=== PATIENT | female | born 1950 | race African-American/Black ===

== ENCOUNTER 2020-08-15 07:45 | Inpatient (IN) | payer OTHER ==
[2020-08-15] VITALS (22 sets, daily range): BP systolic 98–145; BP diastolic 35–77
[~2020-08-15] VITALS: Ht 172.7 cm; Wt 68.0 kg
[2020-08-15] MEDS ORDERED: ONDANSETRON HCL 4MG/2ML INJ IV STA (08:29)
[2020-08-15] MEDS ORDERED: SODIUM CHLORIDE 0.9% 500 ML IV ONE (08:30)
[2020-08-15 08:43] LABS: BASOPHILS % 0.4 % (0.0-2.0); EOSINOPHILS % 0.1 % (0.0-5.0); HEMATOCRIT. 47.9 % (36.0-48.0); HEMOGLOBIN. 16.1 g/dL (12.0-16.0); LYMPHOCYTES % 18.7 % (20.0-50.0); MEAN CORPUSCULAR HEMOGLOBIN 29.7 pg (28.0-32.0); MEAN CORPUSCULAR VOLUME 88.4 fL (81.0-99.0); MEAN PLATELET VOLUME 8.3 fl (7.4-10.4); MONOCYTES % 9.9 % (2.0-8.0); NEUTROPHILS % 70.9 % (40.0-76.0); PLATELET 217 x1000/uL (130-400); RED BLOOD CELL COUNT 5.42 mill/uL (4.2-5.4); RED CELL DISTRIBUTION WIDTH 14.1 % (11.6-14.6)
[2020-08-15 08:50] LABS: CHLORIDE 103 mEq/L (98-107)
[2020-08-15 08:57] LABS: ETHANOL BLOOD < 10 mg/dL
[2020-08-15] MEDS ORDERED: POTASSIUM CHLORIDE 20MEQ TABLET SR PO ONE (09:00)
[2020-08-15] MEDS ORDERED: LEVETIRACETAM 500MG PREMIX 100 ML IV ONE ×2 (09:45→12:12)
[2020-08-15] MEDS ORDERED: MANNITOL 12.5G (25%) VIAL 50ML IV ONE (09:45)
[2020-08-15] MEDS ORDERED: MANNITOL 20% 250 ML IV NR (10:30)
[2020-08-15 10:32] LABS: PARTIAL THROMBOPLASTIN TIME 25.1 sec (23.4-31.0); PROTHROMBIN TIME 10.9 sec (9.6-11.0)
[2020-08-15] MEDS ORDERED: BACITRACIN 50,000 UNITS/VIAL ONE (10:48)
[2020-08-15] MEDS ORDERED: BACITRACIN 15GM TUBE TOP ONE (10:48)
[2020-08-15] MEDS ORDERED: THROMBIN (BOVINE) 5000 UNITS/VIAL TOP ONE (10:48)
[2020-08-15] MEDS ORDERED: FENTANYL CITRATE/PF 50MCG/ML 2ML VIAL ONE (11:25)
[2020-08-15] MEDS ORDERED: MIDAZOLAM HCL 2 MG/2 ML VIAL ONE (11:25)
[2020-08-15] MEDS ORDERED: ONDANSETRON HCL 4MG/2ML INJ ONE (12:01)
[2020-08-15] MEDS ORDERED: DEXAMETHASONE 4MG/ML 1ML VIAL ONE (12:01)
[2020-08-15] MEDS ORDERED: NEOSTIGMINE METHYLSULFATE 1MG/ML 10 ML VIAL ONE (12:01)
[2020-08-15] MEDS ORDERED: PROPOFOL 200MG/20ML VIAL IV ONE (12:01)
[2020-08-15] MEDS ORDERED: ROCURONIUM BROMIDE 10MG/ML VIAL 5ML IV ONE (12:01)
[2020-08-15] MEDS ORDERED: FENTANYL CITRATE/PF 50MCG/ML 5ML VIAL ONE (12:02)
[2020-08-15] MEDS ORDERED: LEVETIRACETAM 500 MG in SODIUM CHLORIDE 0.9% 100 ML IV SCH (12:15)
[2020-08-15] MEDS ORDERED: HYDROMORPHONE HCL/PF 2MG/ML CPJ IV PRN (12:30)
[2020-08-15] MEDS ORDERED: MEPERIDINE HCL/PF 25MG/ML CPJ IV PRN (12:30)
[2020-08-15] MEDS ORDERED: LABETALOL 5MG/ML SYR 20 MG/4 ML SYRINGE IV PRN (12:30)
[2020-08-15] MEDS ORDERED: ONDANSETRON HCL 4MG/2ML INJ IV PRN (12:30)
[2020-08-15] MEDS ORDERED: CEFAZOLIN SODIUM 1000MG/VIAL IV SCH (14:00)
[2020-08-15] MEDS: MORPHINE SULFATE 4 MG/ML CPJ (NOT FOR IM USE) IV PRN ×2 (17:11→19:13)
[2020-08-15] MEDS: NICARDIPINE 100 MG in SODIUM CHLORIDE 0.9% 60 ML IV PRN (18:17)
[2020-08-15] MEDS: DEXT 5%/LACTATED RINGERS 1,000 ML IV SCH (18:17)
[2020-08-15] MEDS: DEXAMETHASONE 4MG/ML 1ML VIAL IV SCH ×2 (18:20→23:05)
[2020-08-15] MEDS ORDERED: IPRATROPIUM/ALBUTEROL 0.5-3(2.5)MG/3ML NEB HHN PRN (18:45)
[2020-08-15] MEDS: PANTOPRAZOLE SODIUM 40 MG/VIAL IV SCH (19:12)
[2020-08-15] MEDS: CEFAZOLIN 1000MG PREMIX 50 ML IV SCH (21:02)
[2020-08-15] MEDS: LEVETIRACETAM 500MG PREMIX 100 ML IV SCH (22:41)
[2020-08-16] VITALS (70 sets, daily range): BP systolic 98–174; BP diastolic 28–127
[2020-08-16] MEDS: DEXT 5%/LACTATED RINGERS 1,000 ML IV SCH ×2 (05:36→21:40)
[2020-08-16] MEDS: DEXAMETHASONE 4MG/ML 1ML VIAL IV SCH ×3 (05:36→17:39)
[2020-08-16] MEDS: CEFAZOLIN 1000MG PREMIX 50 ML IV SCH ×3 (05:36→21:05)
[2020-08-16 05:40] LABS: BASOPHILS % 0.3 % (0.0-2.0); HEMATOCRIT. 40.6 % (36.0-48.0); HEMOGLOBIN. 13.4 g/dL (12.0-16.0); LYMPHOCYTES % 8.4 % (20.0-50.0); MEAN CORPUSCULAR HEMOGLOBIN 29.2 pg (28.0-32.0); MEAN CORPUSCULAR VOLUME 88.4 fL (81.0-99.0); MEAN PLATELET VOLUME 8.7 fl (7.4-10.4); MONOCYTES % 2.4 % (2.0-8.0); NEUTROPHILS % 88.9 % (40.0-76.0); PLATELET 180 x1000/uL (130-400); RED BLOOD CELL COUNT 4.59 mill/uL (4.2-5.4); RED CELL DISTRIBUTION WIDTH 14.2 % (11.6-14.6)
[2020-08-16 05:59] LABS: CHLORIDE 111 mEq/L (98-107)
[2020-08-16] MEDS: MORPHINE SULFATE 4 MG/ML CPJ (NOT FOR IM USE) IV PRN ×2 (07:02→21:10)
[2020-08-16] MEDS: LEVETIRACETAM 500MG PREMIX 100 ML IV SCH ×2 (09:03→20:00)
[2020-08-16] MEDS: PANTOPRAZOLE SODIUM 40 MG/VIAL IV SCH (09:03)
[2020-08-16] MEDS: NICARDIPINE 100 MG in SODIUM CHLORIDE 0.9% 60 ML IV PRN (21:40)
[2020-08-17] VITALS (87 sets, daily range): BP systolic 95–149; BP diastolic 31–107
[2020-08-17] MEDS: CEFAZOLIN 1000MG PREMIX 50 ML IV SCH ×3 (05:02→21:04)
[2020-08-17 06:23] LABS: HEMATOCRIT. 39.8 % (36.0-48.0); MEAN CORPUSCULAR HEMOGLOBIN 28.9 pg (28.0-32.0); MEAN CORPUSCULAR VOLUME 88.5 fL (81.0-99.0); MEAN PLATELET VOLUME 8.8 fl (7.4-10.4); PLATELET 192 x1000/uL (130-400); RED BLOOD CELL COUNT 4.49 mill/uL (4.2-5.4); RED CELL DISTRIBUTION WIDTH 14.4 % (11.6-14.6)
[2020-08-17 06:33] LABS: CHLORIDE 108 mEq/L (98-107)
[2020-08-17] MEDS: LEVETIRACETAM 500MG PREMIX 100 ML IV SCH ×2 (08:41→20:34)
[2020-08-17] MEDS: PANTOPRAZOLE SODIUM 40 MG/VIAL IV SCH (08:41)
[2020-08-17] MEDS ORDERED: POTASSIUM CHLORIDE INJ 40 MEQ in DEXT 5% WATER 250 ML IV SCH (12:00)
[2020-08-17 14:14] LABS: PLATELET ESTIMATE NORMAL
[2020-08-17] MEDS: NICARDIPINE 100 MG in SODIUM CHLORIDE 0.9% 60 ML IV PRN (17:00)
[2020-08-18] VITALS (56 sets, daily range): BP systolic 95–154; BP diastolic 30–77
[2020-08-18] MEDS: MORPHINE SULFATE 4 MG/ML CPJ (NOT FOR IM USE) IV PRN (04:13)
[2020-08-18] MEDS: LEVETIRACETAM 500MG PREMIX 100 ML IV SCH ×2 (08:32→21:15)
[2020-08-18] MEDS: PANTOPRAZOLE SODIUM 40 MG/VIAL IV SCH (08:32)
[2020-08-18 12:18] LABS: BASOPHILS % 0.2 % (0.0-2.0); HEMATOCRIT. 41.4 % (36.0-48.0); HEMOGLOBIN. 13.5 g/dL (12.0-16.0); LYMPHOCYTES % 17.4 % (20.0-50.0); MEAN CORPUSCULAR HEMOGLOBIN 28.8 pg (28.0-32.0); MEAN PLATELET VOLUME 8.8 fl (7.4-10.4); MONOCYTES % 11.1 % (2.0-8.0); NEUTROPHILS % 71.3 % (40.0-76.0); PLATELET 183 x1000/uL (130-400); RED CELL DISTRIBUTION WIDTH 13.9 % (11.6-14.6)
[2020-08-18 12:34] LABS: CHLORIDE 107 mEq/L (98-107)
[2020-08-18] MEDS ORDERED: POTASSIUM CHLORIDE 20MEQ TABLET SR PO SCH (13:15)
[2020-08-19] VITALS (22 sets, daily range): BP systolic 102–139; BP diastolic 22–110
[2020-08-19 05:16] LABS: CHLORIDE 109 mEq/L (98-107)
[2020-08-19 06:25] LABS: BASOPHILS % 0.1 % (0.0-2.0); EOSINOPHILS % 0.2 % (0.0-5.0); HEMATOCRIT. 39.9 % (36.0-48.0); LYMPHOCYTES % 31.1 % (20.0-50.0); MEAN CORPUSCULAR HEMOGLOBIN 29.1 pg (28.0-32.0); MEAN CORPUSCULAR VOLUME 89.5 fL (81.0-99.0); MEAN PLATELET VOLUME 8.8 fl (7.4-10.4); MONOCYTES % 9.7 % (2.0-8.0); NEUTROPHILS % 58.9 % (40.0-76.0); PLATELET 188 x1000/uL (130-400); RED BLOOD CELL COUNT 4.46 mill/uL (4.2-5.4); RED CELL DISTRIBUTION WIDTH 14.4 % (11.6-14.6)
[2020-08-19] MEDS: PANTOPRAZOLE SODIUM 40 MG/VIAL IV SCH (08:09)
[2020-08-19] MEDS: LEVETIRACETAM 500MG PREMIX 100 ML IV SCH ×2 (08:09→20:13)
[2020-08-19] MEDS ORDERED: POTASSIUM CHLORIDE 20MEQ TABLET SR PO NR (11:00)
[2020-08-19] MEDS ORDERED: CLONIDINE 0.1MG TABLET PO PRN (15:15)
[2020-08-19] MEDS ORDERED: HYDRALAZINE 20MG/ML VIAL IV PRN (15:30)
[2020-08-20 08:00] VITALS: BP_SYST 133; BP_SYST 158; BP_DIAS 65; BP_DIAS 70
[2020-08-20] MEDS: PANTOPRAZOLE SODIUM 40 MG/VIAL IV SCH (08:37)
[2020-08-20] MEDS: LEVETIRACETAM 500MG PREMIX 100 ML IV SCH (08:37)
[2020-08-20] MEDS ORDERED: AMLODIPINE 10MG TABLET PO SCH (09:00)
[2020-08-20 12:00] VITALS: BP 116/59
[2020-08-20] MEDS ORDERED: KEPP500 MT (12:15)
[2020-08-20] MEDS ORDERED: AMLO10TA80 MT (12:15)
[2020-08-20 14:56] VITALS: BP 124/81
== END 2020-08-20 18:00 | disposition home or self-care (01) | DRG 23 ==
LOC: ER 07:45 → OR 09:57 → 5EST 09:58 → EDBEDREQ 10:05 → EDBEDREQTM 10:05 → EDBEDREQSVC 10:05 → ENRESERV 15:05 → 5WST 08-19 22:58
PROVIDERS: ADMIT Internal Medicine; ATTEND Internal Medicine
PROC: 00U207Z Supplement Dura Mater with Autologous Tissue Substitute, Open Approach (ICD-10-PCS; principal; 2020-08-17)
PROC: 00C70ZZ Extirpation of Matter from Cerebral Hemisphere, Open Approach (ICD-10-PCS; 2020-08-17)
PROC: 0NU00JZ Supplement Skull with Synthetic Substitute, Open Approach (ICD-10-PCS; 2020-08-17)
PROC: 00970ZZ Drainage of Cerebral Hemisphere, Open Approach (ICD-10-PCS; 2020-08-17)
DX: I61.5 Nontraumatic intracerebral hemorrhage, intraventricular (principal); G93.6 Cerebral edema; G81.90 Hemiplegia, unspecified affecting unspecified side; G93.40 Encephalopathy, unspecified; I60.9 Nontraumatic subarachnoid hemorrhage, unspecified; E87.6 Hypokalemia; F17.210 Nicotine dependence, cigarettes, uncomplicated; Z20.822 Contact with and (suspected) exposure to COVID-19; I10 Essential (primary) hypertension; Z82.49 Family history of ischemic heart disease and other diseases of the circulatory system; Z86.73 Personal history of transient ischemic attack (TIA), and cerebral infarction without residual deficits; Z79.899 Other long term (current) drug therapy
CPT/HCPCS: 36415; 71045; 80048; 80053; 80320; 83880; 84484; 85025; 86850; 86900; 87426; 93005; 97116; 97162; 97166; 99291; C1713; C1725; C1758; C1893; C9113; J0690; J1100; J1953; J2150; J2175; J2250; J2270; J2405; J2704; J2710; J3010; J3480; J3490; J7040; J7050; J7060; J7121; G0480